=== PATIENT | male | born 1960 | race Caucasian/White ===

== ENCOUNTER 2017-02-07 16:48 | Emergency (ER) | payer OTHER ==
[2017-02-07 17:37] LABS: URINE SOURCE CLEAN CATCH
[2017-02-07 17:44] LABS: URINE APPEARANCE CLEAR; URINE BILIRUBIN NEG (NEG); URINE BLOOD 3+ (NEG); URINE COLOR YELLOW; URINE GLUCOSE NEG (NEG); URINE KETONE 1+ (NEG); URINE LEUKOCYTE ESTERASE NEG (NEG); URINE NITRATE NEG (NEG); URINE PROTEIN NEG (NEG); URINE SPECIFIC GRAVITY 1.015 (1.003-1.035); URINE UROBILINOGEN 0.2 MG/DL (NEG)
[2017-02-07 17:46] LABS: U HYALINE CASTS AUWI 0-2 /[LPF]; URBCS1 AUWI INNUM /[HPF] (0-2); URINE BACTERIA AUWI NEG (NEGATIVE); URINE SQUAMOUS EPITHELIAL CELL NONE SEEN /[HPF]
[2017-02-07 17:48] LABS: CULTURE INDICATED? NO
== END 2017-02-07 18:35 | disposition home or self-care (01) ==
LOC: CED 16:48
PROVIDERS: Emergency Medicine
DX: N40.1 Benign prostatic hyperplasia with lower urinary tract symptoms (principal); R33.8 Other retention of urine; F17.200 Nicotine dependence, unspecified, uncomplicated
CPT/HCPCS: 51702; 81003; 99284

== ENCOUNTER 2017-03-23 06:07 | Emergency (ER) | payer OTHER ==
--- NOTE | ~2017-03-23 | EKG ---
PATIENT: RAVIN SOUTH UNIT #: [id number] Ventricular Rate: 81 BPM Atrial Rate: 81 BPM P-R Interval: 138 ms QRS Duration: 78 ms Q-T Interval: 322 ms QTC Calculation(Bezet): 374 ms P [place]: 71 degrees Calculated R [place]: -32 degrees Calculated T [place]: 42 degrees Diagnosis Line: Normal sinus rhythm Diagnosis Line: Left axis deviation Diagnosis Line: Abnormal ECG Diagnosis Line: No previous ECGs available Diagnosis Line: Confirmed by JOSUE BRINK MD ([id number]) on Diagnosis Line: 03/23/2017 3:46:39 PM INTERPRETING MD: KEENA HAND
[2017-03-23 07:36] LABS: POC - CKMB 1.3 ng/mL (0.0-7.9); POC - TROPONIN <0.05 ng/mL (<=0.05)
[2017-03-23 07:38] LABS: BASOPHIL% 0.3 % (0-2.5); EOSINOPHIL# 0.1 X10e3 (0-0.7); EOSINOPHIL% 2.3 % (0.0-7.0); HEMATOCRIT 46.2 % (38.0-50.0); HEMOGLOBIN 15.7 gm/dL (13.0-16.0); LYMPHOCYTE# 0.4 X10e3 (1.0-3.5); LYMPHOCYTE% 6.9 % (17.0-45.0); MEAN CELL VOLUME 91.5 FL (83-96); MEAN CORPUSCULAR HGB CONC 33.9 g/dL (30-36); MEAN PLATELET VOLUME 7.8 FL (6.5-11.5); MONOCYTE% 0.5 % (3.0-12.0); PLATELET COUNT 196 X10e3 (140-420); RED BLOOD COUNT 5.05 X10e (3.90-5.60); RED CELL DISTRIBUTION WIDTH 13.9 % (11.0-15.5); WHITE BLOOD COUNT 5.5 X10e3 (4.0-10.5)
[2017-03-23 07:46] LABS: DIFF IND NO
[2017-03-23 07:53] LABS: ALBUMIN SERUM 4.1 g/dL (3.5-5.0); BILIRUBIN, DIRECT 0.2 mg/dL (0.0-0.2); BILIRUBIN,INDIRECT 0.7 mg/dL (0.0-0.9); BILIRUBIN,TOTAL 0.9 mg/dL (0.2-2.0); CALCIUM SERUM 8.6 mg/dL (8.4-10.2); GLOM FILT RATE Estimated 83.2 mL/min (>60); POTASSIUM 3.9 mmol/L (3.5-5.1); PROTEIN TOTAL SERUM 6.7 g/dL (6.0-8.3)
[2017-03-23 09:10] LABS: URINE SOURCE CLEAN CATCH
[2017-03-23 09:17] LABS: URINE APPEARANCE CLEAR; URINE BILIRUBIN NEG (NEG); URINE BLOOD 3+ (NEG); URINE COLOR YELLOW; URINE GLUCOSE NEG (NEG); URINE KETONE NEG (NEG); URINE LEUKOCYTE ESTERASE 1+ (NEG); URINE NITRATE NEG (NEG); URINE PROTEIN TRACE (NEG); URINE SPECIFIC GRAVITY 1.018 (1.003-1.035)
[2017-03-23 09:18] LABS: CULTURE INDICATED? YES; URBCS1 AUWI 25-50 /[HPF] (0-2); URINE BACTERIA AUWI NEG (NEGATIVE); URINE SQUAMOUS EPITHELIAL CELL NONE SEEN /[HPF]
== END 2017-03-23 12:47 | disposition home or self-care (01) ==
LOC: CED 06:07
PROVIDERS: Emergency Medicine
DX: N39.0 Urinary tract infection, site not specified (principal)
CPT/HCPCS: 36415; 80048; 80076; 81003; 82553; 83605; 83690; 84484; 85025; 87086; 87088; 87186; 93005; 96361; 96365; 99284; J0696

== ENCOUNTER 2017-04-22 18:02 | Inpatient (IN) | payer OTHER ==
--- NOTE | ~2017-04-22 | DS ---
Unit #: [id number] #: [id number] Patient: RAVIN SOUTH [id number] [address] [id number] I MR#: [id number] NAME: RAVIN SOUTH. ROOM: 216 Age: 57 Sex: M Admission Date: 04/22/2017 : 1960 Discharge Date: 04/25/2017 Attending Physician: José Miguel Portillo M.D. Primary Care Physician: Suleiman Oneal M.D. DISCHARGE SUMMARY DIAGNOSES 1. Orchitis. 2. Prostatitis. HOSPITAL COURSE Patient admitted to the hospital after being diagnosed with orchitis and suspected prostatitis. He had a Rezum procedure performed in March by Dr. Pedro. He had E. coli UTI which was resistant. The patient presented to the hospital with swelling and discomfort, admitted for treatment. PAST MEDICAL HISTORY Rezum, back surgery. ALLERGIES No known drug allergies. MEDICATIONS AT HOME None chronically. Urine culture shows E. coli resistant to different antibiotics but sensitive to Rocephin and Macrodantin. We will try to place him on Suprax p.o. and give him a dose of Rocephin here in the hospital. Hopefully, [employer] can get him prescribed medication prior to discharge. Dictated by... Williams Whitney M.D. CARLI/chaitanya TD: 04/25/2017 12:42 JOB #: [id number] DISCHARGE SUMMARY Page 1 of 1 X Williams Whitney MD X DISCHARGE SUMMARY
--- NOTE | ~2017-04-22 | HP ---
Unit #: [id number] #: [id number] Patient: RAVIN SOUTH [id number] [facility]. [place], [place] [address] [id number] MR#: [id number] NAME: RAVIN SOUTH. ROOM: 216 Age: 57 Sex: M Admission Date: 04/22/2017 : 1960 Attending Physician: José Miguel Portillo M.D. Primary Care Physician: Suleiman Oneal M.D. HISTORY AND PHYSICAL CHIEF COMPLAINT Right scrotal pain, swelling and dysuria. HISTORY This 57-year-old man was admitted with painful swelling in the right testicle yesterday, as well as hematuria with clots and dysuria. He has improved overnight with a Go catheter and antibiotics, which are Zosyn. He had a Rezum procedure on 03/21/2017 by my partner, Dr. Pedro and did present to the [facility] emergency department the following day with fever, chills and shakes and was treated with an antibiotic that he cannot currently identify. He presented for catheter removal feeling better two days later, but approximately five days after the catheter was removed he was contacted by the emergency department and changed to a different antibiotic. Record shows that urine culture result from 03/25/2017 showed E. coli sensitive to Ceftriaxone and Macrodantin but resistant to Bactrim with, which he had originally been covered periprocedurally. Records show that urine culture result from 03/25/2017 showed E. coli sensitive to Ceftriaxone and Macrodantin but resistant to Bactrim with which he had originally been covered periprocedurally. He did improve on this antibiotic but then gradually worsened within a week after it being completed, with progressive hematuria, dysuria, and ultimately noting swelling of the right testicle yesterday. Although no fever or chills, and he has had no fever in the hospital. Again he has improved overnight with his catheter. PAST MEDICAL HISTORY No chronic illness. PAST SURGICAL HISTORY Back surgery and the Rezum procedure. MEDICATIONS None chronically. ALLERGIES None known. PHYSICAL EXAMINATION GENERAL: The patient is pleasant, alert, comfortable with a 3-way catheter in place draining clear yellow urine. VITAL SIGNS: He is afebrile with stable vital signs. Maximum hospital temperature 99.0 degrees, now 98.3. Pulse 59, blood pressure 137/79, respirations 16, height 5'9", weight 174 pounds. Unit #: [id number] #: [id number] Patient: RAVIN SOUTH HEENT: Unremarkable. LUNGS: Clear. CARDIAC: Rate and rhythm regular. ABDOMEN: Soft, nontender. : Phallus normal circumcised with catheter in place draining clear yellow urine. The right testicle is enlarged and firm to about 7 cm and moderately tender but without fluctuance or erythema of the skin. DIAGNOSTIC STUDIES LABORATORY STUDIES: Notable for WBC 23.5, creatinine 0.9, sodium 133. IMAGING STUDIES: Scrotal ultrasound confirms right orchitis and bilateral testicular flow. IMPRESSION Persistent resistance urinary tract infection with orchitis, likely deep seated prostatitis indicating longer duration of appropriate antibiotic therapy. PLAN Will continue Zosyn, await urine culture and sensitivity. Serial laboratories. Catheter until culture results. Dictated by Mahogany Wagner/mica TD: 04/24/2017 07:02 JOB #: [id number] HISTORY AND PHYSICAL Page 1 of 1 X Kingston Caputo MD X HISTORY AND PHYSICAL
--- NOTE | ~2017-04-22 | US115 ---
[facility] A Service of [facility] RADIOLOGY TEXT RESULTS PATIENT: RAVIN SOUTH LOCATION: [facility] : 58 UNIT #: [id number] AGE: [address]: José Miguel Portillo MD SEX: M ORDER DR: [id number] [facility] [address] [place], [place] [address] [id number] MR#: [id number] Acc #: [id number] NAME: RAVIN SOUTH. : 1960 SEX: M STUDY DATE/TIME: 04/22/2017 20:14 UNIT: [id number] ROOM: [facility] STUDY DESCRIPTION: US Scrotum and Contents Attending Physician: José Miguel Portillo M.D. Ordering Physician: Ed Shayne Ziegler M.D. Primary Care Physician: Suleiman Oneal M.D. MEDICAL IMAGING REPORT This report is preliminary unless electronic signature is present EXAMINATION Bilateral scrotal ultrasound with Doppler imaging DATE 04/22/2017 HISTORY Right scrotal pain and swelling, right greater than left for 2 days. Enlarged prostate, per patient. COMPARISON None FINDINGS Right testicle measures 4.3 x 2.6 x 3.3 cm. Left testicle measures 4.0 x 1.7 x 2.5 cm. Both testicles demonstrate normal echotexture without cystic or solid abnormality. Both testicles demonstrate color and spectral Doppler flow. The right testicle demonstrates slightly increased color flow compared to the left, which may indicate changes of underlying orchitis. The epididymi appear within normal limits. There is a moderate-sized right scrotal hydrocele. No appreciable left scrotal hydrocele. No varicocele is seen on either side. IMPRESSION 1. The right testicle appears slightly more vascular than the left on color imaging, suggesting changes of orchitis. 2. Moderate right scrotal hydrocele. 3. Flow is documented to each testicle. Dictated by... Martha Velazquez M.D. [facility] A Service of [facility] RADIOLOGY TEXT RESULTS PATIENT: RAVIN SOUTH LOCATION: [facility] : 58 UNIT #: [id number] AGE: [address]: José Miguel Portillo MD SEX: M ORDER DR: THIS IS AN ELECTRONICALLY VERIFIED REPORT Martha Velazquez M.D. at 04/23/2017 10:40 AM ALMA ROSA/jose TD: 04/23/2017 02:49 JOB #: [id number] MEDICAL IMAGING REPORT Page 1 of 1 COPY
[2017-04-22 20:20] LABS: BASOPHIL% 0.1 % (0-2.5); EOSINOPHIL% 0.1 % (0.0-7.0); HEMATOCRIT 40.6 % (38.0-50.0); HEMOGLOBIN 13.8 gm/dL (13.0-16.0); LYMPHOCYTE% 4.1 % (17.0-45.0); MEAN CELL VOLUME 89.8 FL (83-96); MEAN CORPUSCULAR HEMOGLOBIN 30.5 PG (28-34); MEAN PLATELET VOLUME 7.1 FL (6.5-11.5); MONOCYTE# 1.7 X10e3 (0-1.0); MONOCYTE% 7.4 % (3.0-12.0); NEUTROPHIL# 20.7 X10e3 (1.5-7.1); NEUTROPHIL% 88.3 % (40-75); PLATELET COUNT 245 X10e3 (140-420); RED BLOOD COUNT 4.52 X10e (3.90-5.60); RED CELL DISTRIBUTION WIDTH 13.8 % (11.0-15.5); WHITE BLOOD COUNT 23.5 X10e3 (4.0-10.5)
[2017-04-22 20:21] LABS: DIFF IND YES
[2017-04-22 20:39] LABS: BUN/CREATININE RATIO 17.77; CALCIUM SERUM 8.5 mg/dL (8.4-10.2); CREATININE SERUM 0.9 mg/dL (0.6-1.4); GLOM FILT RATE Estimated 93.8 mL/min (>60); POTASSIUM 3.8 mmol/L (3.5-5.1)
[2017-04-22 20:59] LABS: PLATELET ESTIMATE NORMAL (NORMAL)
[2017-04-22 21:00] LABS: RBC NORMAL YES
[2017-04-22 21:05] LABS: URINE SOURCE CLEAN CATCH
[2017-04-22 21:11] LABS: URINE APPEARANCE CLOUDY; URINE BILIRUBIN NEG (NEG); URINE BLOOD 1+ (NEG); URINE COLOR YELLOW; URINE GLUCOSE NEG (NEG); URINE KETONE 2+ (NEG); URINE LEUKOCYTE ESTERASE 3+ (NEG); URINE NITRATE NEG (NEG); URINE PH 5.5 (5-8); URINE PROTEIN NEG (NEG); URINE SPECIFIC GRAVITY 1.011 (1.003-1.035)
[2017-04-22 21:13] LABS: CULTURE INDICATED? YES; URINE BACTERIA AUWI NEG (NEGATIVE); URINE SQUAMOUS EPITHELIAL CELL NONE SEEN /[HPF]; UWBCS1 AUWI 200-300 (0-5)
[2017-04-24 06:34] LABS: HEMATOCRIT 39.4 % (38.0-50.0); MEAN CELL VOLUME 91.7 FL (83-96); MEAN CORPUSCULAR HEMOGLOBIN 30.2 PG (28-34); MEAN CORPUSCULAR HGB CONC 32.9 g/dL (30-36); MEAN PLATELET VOLUME 7.8 FL (6.5-11.5); RED BLOOD COUNT 4.3 X10e (3.90-5.60); RED CELL DISTRIBUTION WIDTH 13.6 % (11.0-15.5); WHITE BLOOD COUNT 16.6 X10e3 (4.0-10.5)
[2017-04-25 05:43] LABS: HEMATOCRIT 41.1 % (38.0-50.0); HEMOGLOBIN 13.5 gm/dL (13.0-16.0); MEAN CELL VOLUME 92.6 FL (83-96); MEAN CORPUSCULAR HEMOGLOBIN 30.3 PG (28-34); MEAN CORPUSCULAR HGB CONC 32.8 g/dL (30-36); MEAN PLATELET VOLUME 7.6 FL (6.5-11.5); RED BLOOD COUNT 4.44 X10e (3.90-5.60); RED CELL DISTRIBUTION WIDTH 13.8 % (11.0-15.5); WHITE BLOOD COUNT 10.5 X10e3 (4.0-10.5)
[2017-04-25 06:45] LABS: CALCIUM SERUM 8.5 mg/dL (8.4-10.2); GLOM FILT RATE Estimated 82.6 mL/min (>60); POTASSIUM 4.5 mmol/L (3.5-5.1)
[2017-04-25] MEDS ORDERED: HYDROCODON-ACE1 EAC9 PO (09:29)
[2017-04-25] MEDS ORDERED: SUPRAX400 M1 PO (09:29)
[2017-04-26 05:23] LABS: HEMATOCRIT 41.8 % (38.0-50.0); HEMOGLOBIN 13.9 gm/dL (13.0-16.0); MEAN CORPUSCULAR HEMOGLOBIN 30.3 PG (28-34); MEAN CORPUSCULAR HGB CONC 33.3 g/dL (30-36); MEAN PLATELET VOLUME 7.6 FL (6.5-11.5); RED BLOOD COUNT 4.59 X10e (3.90-5.60); RED CELL DISTRIBUTION WIDTH 13.7 % (11.0-15.5); WHITE BLOOD COUNT 8.7 X10e3 (4.0-10.5)
[2017-04-26 08:41] LABS: CHLAMYDIA TRACH Not Detected (Not Detected); N GONOR Not Detected (Not Detected)
== END 2017-04-27 09:27 | disposition home or self-care (01) | DRG 728 ==
LOC: CED 18:02 → CEDOF 21:40 → C2A 21:40 → CED 21:47 → CEDOF 21:47 → C3A PCU 23:36 → CEDOF 23:36 → C3A PCU 23:36 → C2A 04-23 08:18
PROVIDERS: Emergency Medicine; Urology
DX: N45.2 Orchitis (principal); N39.0 Urinary tract infection, site not specified; N41.9 Inflammatory disease of prostate, unspecified; B96.20 Unspecified Escherichia coli [E. coli] as the cause of diseases classified elsewhere
CPT/HCPCS: 36415; 76870; 80048; 81003; 85025; 85027; 87086; 87088; 87186; 87491; 87591; 99285; J0696; J1650; J2543